=== PATIENT | male | born 1960 | race Caucasian/White ===

== ENCOUNTER 2021-02-15 08:52 | Day surgery (SDC) | payer OTHER ==
[~2021-02-15] VITALS: Ht 167.6 cm; Wt 88.0 kg
[~2021-02-15 08:52] MED LIST: ALBU2.5V8 INH; CYCL10TA2 PO; ESOM40CA PO; NAPR-514 PO
[2021-02-15] MEDS ORDERED: AMOX1TAB11 PO (09:19)
[2021-02-15 09:20] VITALS: BP 134/65
[2021-02-15] MEDS ORDERED: IV RINGERS,LACTATED 1000ML 1,000 ML IV SCH (09:30)
[2021-02-15] MEDS ORDERED: DEXAMETHASONE SOD PHOS 4 MG/ML VIAL ONE (09:37)
[2021-02-15] MEDS ORDERED: LIDOCAINE 2% PF 5 ML VIAL. ONE (09:37)
[2021-02-15] MEDS ORDERED: PROPOFOL 10 MG/ML (20ML) VIAL. IV ONE (09:37)
[2021-02-15] MEDS ORDERED: ONDANSETRON PF 4 MG/2 ML VIAL. ONE (09:38)
[2021-02-15] MEDS ORDERED: ACETAMINOPHEN 500 MG TABLET PO ONE (09:50)
[2021-02-15] MEDS ORDERED: BUPIVACAINE-EPI 0.25%-1:200000 MPF 30 ML VIAL. ONE (10:21)
[2021-02-15] MEDS ORDERED: fentaNYL PF VIAL 100 MCG/2 ML VIAL ONE (10:30)
[2021-02-15] MEDS ORDERED: SEVOFLURANE 16 TO 30 MINUTES. IH ONE (10:43)
--- NOTE | 2021-02-15 10:49 | PDOC4 ---
Operative Note Operative Note Date: February 15, 2021 at 1047 Preoperative diagnosis: Right axillary abscess Postoperative diagnosis: Same Procedure: Incision and drainage of right axillary abscess Surgeon: Sushil Specimen: Cultures Dictation: Patient is 60-year-old male with a right axillary abscess. Procedure of incision and drainage of abscess was explained to the patient detail risk benefits were also discussed occluding bleeding infection alternatives to this procedure also discussed with patient who seemed to understand and gave a verbal written consent to have the procedure performed. Patient was taken to the operating room placed in the supine position general anesthesia was initiated once patient was sleeping intubated his right axillary area was prepped and draped usual sterile fashion using Betadine scrub and solution. Area over the abscess was incised with a 10 blade scalpel purulent material was expressed this was cultured the wound was evacuated of all the purulent material the wound was then irrigated with copious amounts normal saline and suctioned dry. The wound was then packed with half-inch iodoform Nu Gauze. Wound was dressed with 4 x 4's and Medipore tape. Patient was awakened and extubated operating room taken to recovery in stable condition all sponge instrument needle counts listed as correct estimated blood loss 10 mL ANNIKA PRIETO MD Feb 15, 2021 10:49
[2021-02-15] MEDS ORDERED: OXYC-325 PO (10:51)
--- NOTE | 2021-02-15 10:53 | DISCH ---
DISCHARGE INSTRUCTIONS Condition on Discharge Condition on Discharge: Stable Activity After Discharge Activity Instructions for Disc: Activity as tolerated Diet after Discharge Diet after Discharge: Regular Wound Incision Care Other wound/incision instructi: May shower in 24 hours. Wound packing change daily Contacting the [facility] after DC Call your doctor for: If your condition worsens Follow-Up Follow up with: Dr. Prieto in 1 week ANNIKA PRIETO MD Feb 15, 2021 10:52
[2021-02-15] MEDS ORDERED: oxyCODONE/APAP 5/325 1 TAB TABLET PO ONE (11:30)
[2021-02-15 12:00] VITALS: BP 125/75
== END 2021-02-15 12:31 | disposition home or self-care (01) ==
LOC: SURG 08:52
PROVIDERS: ATTEND Surgery
DX: L02.411 Cutaneous abscess of right axilla (principal); Z20.822 Contact with and (suspected) exposure to COVID-19; K21.9 Gastro-esophageal reflux disease without esophagitis; J45.909 Unspecified asthma, uncomplicated; M19.90 Unspecified osteoarthritis, unspecified site; Z98.890 Other specified postprocedural states
CPT/HCPCS: 10060; 87071; 87075; 87426; A4930; A6266; A6402; J0690; J1100; J2405; J2704; J3010; J3490